=== PATIENT | female | born 1995 | race Caucasian/White ===

== ENCOUNTER 2018-06-12 13:21 | Outpatient (REF) | payer OTHER, SELFPAY ==
--- NOTE | 2018-06-12 12:00 | PAPFT_PTH ---
PATIENT: Promise Burrows LOC: [facility] U#:[id number] AGE/SX: 22/F ROOM: RE06/12/[address]: Magan Samson MD : 1995 BED: DIS: 06/12/2018 SPEC #: [id number] RECD: 06/15/18 12:58 STATUS: LISA REVandana #: [id number] KARIN: 06/12/18 12:[address]: Magan Samson DEPT: [facility] Cytology RECD BY: Melissa Ospina Tissues: 1 - CX/ENDOCX FOR PAP SMEARS Procedures: PAP THIN PREP/UVM Screening Comments: [id number]
== END 2018-06-12 13:41 ==
LOC: LBN 13:21
PROVIDERS: PCP Family Medicine; Visit Provider Family Medicine
DX: Z12.4 Encounter for screening for malignant neoplasm of cervix (principal)
CPT/HCPCS: 88142

== ENCOUNTER 2018-08-11 02:07 | Outpatient (CLI) | payer OTHER, SELFPAY ==
[2018-08-11 15:01] LABS: Cholesterol 139 mg/dL (50-200); Glucose 89 mg/dL (70-100); HDL Cholesterol 54 mg/dL (40-60); LDL CHOLESTEROL 80 mg/dL (<100); Potassium 3.8 mmol/L (3.5-5.1); Triglyceride 29 mg/dL (30-150)
== END 2018-08-11 02:27 ==
PROVIDERS: PCP Family Medicine; Visit Provider Family Medicine
DX: Z00.00 Encounter for general adult medical examination without abnormal findings (principal); E87.6 Hypokalemia; R25.1 Tremor, unspecified
CPT/HCPCS: 36415; 80061; 82947; 83721; 84132

== ENCOUNTER 2018-12-31 18:44 | Emergency (ER) | payer OTHER, SELFPAY ==
[2018-12-31] VITALS (9 sets, daily range): BP systolic 110–135; BP diastolic 50–70; PULSE 13–93; RESP 11–24; TEMP 37–37.4; O2SAT 98–100
--- NOTE | 2018-12-31 18:48 | ED.GENADUL_ITS ---
Discharge Plan Discharge Details Primary Care Provider: Magan Samson ED Provider: Linnea Mitchell Home Meds and New Rx's Prescriptions: No Action levetiracetam 1,000 mg tablet 1,000 mg PO Q12H Qty: 180 RF: 3 Elinest 0.3-30 mg-mcg tablet 1 tab PO DAILY Qty: 90 RF: 4 sertraline 50 mg tablet 50 mg PO DAILY Qty: 90 RF: 3 mometasone 50 mcg/actuation spray,non-aerosol 2 spray KESHAWN DAILY PRN (Reason: allergy symptoms) Qty: 17 RF: 4 lorazepam 0.5 mg tablet 0.5 mg PO BID PRN (Reason: anxiety) Qty: 20 RF: 0 cyanocobalamin (vitamin B-12) [Vitamin B-12] 1,000 MCG tablet 1,000 mcg PO DAILY RF: 0 folic acid 0.4 MG tablet 0.4 mg PO wkly RF: 0 Probiotic 1 EACH capsule 1 ea PO DAILY RF: 0 cholecalciferol (vitamin D3) 1,000 UNIT tablet 3,000 unit PO DAILY RF: 0 HPI General Date/Time Provider Initiated Documentation: 12/31/18 18:44 . Related Data Home Medications Medication Instructions Recorded Confirmed Lactobacillus acidophilus 1 ea PO DAILY 12/30/17 10/27/18 [Probiotic] cyanocobalamin (vitamin B-12) 1,000 mcg PO DAILY 12/30/17 10/27/18 [Vitamin B-12] folic acid 0.4 mg PO wkly tab-cap 12/30/17 10/27/18 cholecalciferol (vitamin D3) 3,000 unit PO DAILY 01/06/18 10/27/18 sertraline 50 mg tablet 50 mg PO DAILY #90 tab-cap 02/18/18 10/27/18 levetiracetam 1,000 mg tablet 1,000 mg PO Q12H #180 tab-cap 06/12/18 10/27/18 norgestrel-ethinyl estradiol 0.3 1 tab PO DAILY #90 tab-cap 06/12/18 10/27/18 mg-30 mcg tablet lorazepam 0.5 mg tablet 0.5 mg PO BID PRN #20 tab 10/27/18 10/27/18 mometasone 50 mcg/actuation nasal 2 spray KESHAWN DAILY PRN #17 gm 10/27/18 10/27/18 spray Previous Rx's Medication Instructions Recorded sertraline 50 mg tablet 50 mg PO DAILY #90 tab-cap 02/18/18 levetiracetam 1,000 mg tablet 1,000 mg PO Q12H #180 tab-cap 06/12/18 norgestrel-ethinyl estradiol 0.3 1 tab PO DAILY #90 tab-cap 06/12/18 mg-30 mcg tablet lorazepam 0.5 mg tablet 0.5 mg PO BID PRN #20 tab 10/27/18 mometasone 50 mcg/actuation nasal 2 spray KESHAWN DAILY PRN #17 gm 10/27/18 spray Allergies Allergy/AdvReac Type Severity Reaction Status Date / Time Penicillins Allergy Intermediate Hives Unverified 10/27/18 08:30 [facility] Social History (Updated 06/15/18 @ 08:59 by Jemima Marie) Smoking/Tobacco Use Status: Former Tobacco Use Second Hand Exposure: Yes Alcohol Intake: former Drug use: Never Substance use type: does not use Caregiver/Support person: No Foster care: No Household members: friend(s) Housing: apartment Number of Children: 1 current occupation: [employer], works with kennel manager dog track Pets and animals: No Sexually active: Yes Current gender identity: decline to answer Duration: decline to answer Frequency: 3-4 times per week Rosy/Sabianist: No preference Special rosy needs: No Seatbelt use: always Helmet use: Yes Drive intox or ride w/intox rolloff driver: No Working smoke detector in home: Yes Fire extinguisher in home: Yes Carbon monox detector in home: Yes Firearms in home: No Do you feel safe in your relationship?: Yes
[2018-12-31 19:07] LABS: Abs Immature Grans 0.01 k/cumm (0.0-0.09); Absolute Basophil Count 0.02 k/cumm (0.0-0.2); Absolute Eosinophil Count 0.09 k/cumm (0.0-0.7); Absolute Lymphocyte Count 1.85 k/cumm (1.2-3.4); Absolute Monocyte Count 0.38 k/cumm (0.11-0.7); Absolute Neutrophil Count 3.46 k/cumm (1.2-6.7); Basophils % 0.3; Eosinophils % 1.5; HCT 40.5 % (36.0-46.0); Immature Grans % 0.2; Lymphocytes % 31.8; Mean Corp. HGB Concentration 34.6 g/dL (32.0-36.0); Mean Corpuscular Hemoglobin 29.9 pg (27.0-33.0); Mean Corpuscular Volume 86.4 fL (80-95); Monocytes % 6.5; Neutrophils % 59.7; Platelet Count 208 x1000/uL (130-400); RBC 4.69 m/cumm (4.00-5.20); RBC Distribution Width 11.9 % (11.7-14.6); White Blood Cell Count 5.81 k/cumm (4.4-10.8)
[2018-12-31] MEDS: Normal Saline 1,000 ML 1000 ML IV (19:20)
[2018-12-31] MEDS: Normal Saline Flush 10 ML SYR IVP (19:20)
[2018-12-31] MEDS: Ondansetron 4 MG/2 ML VIAL (19:20)
[2018-12-31 19:23] LABS: Anion Gap 16.2 mmol/L (3-11); BUN 16 mg/dL (7-18); CO2 19.8 mmol/L (21.0-32.0); CREATININE 0.95 mg/dL (0.55-1.02); Calcium 8.8 mg/dL (8.5-10.1); Chloride 103 mmol/L (98-107); Glucose 92 mg/dL (70-100); Sodium 139 mmol/L (136-145)
--- NOTE | 2018-12-31 19:30 | ED.GENADUL_ITS ---
Discharge Plan Disposition Patient Disposition: HOME Condition: Good Discharge Details Chief Complaint: Seizure Clinical Impression: Seizure, Hypokalemia Primary Care Provider: Magan Samson ED Provider: Jason Villalba Home Meds and New Rx's Prescriptions: Continued Elinest 0.3-30 mg-mcg tablet 1 tab PO DAILY Qty: 90 RF: 4 sertraline 50 mg tablet 50 mg PO DAILY Qty: 90 RF: 3 mometasone 50 mcg/actuation spray,non-aerosol 2 spray KESHAWN DAILY PRN (Reason: allergy symptoms) Qty: 17 RF: 4 cyanocobalamin (vitamin B-12) [Vitamin B-12] 1,000 MCG tablet 1,000 mcg PO DAILY RF: 0 folic acid 0.4 MG tablet 0.4 mg PO wkly RF: 0 Probiotic 1 EACH capsule 1 ea PO DAILY RF: 0 cholecalciferol (vitamin D3) 1,000 UNIT tablet 3,000 unit PO DAILY RF: 0 levetiracetam 1,000 mg tablet 1,000 mg PO Q12H Qty: 60 RF: 0 Discharge Instructions Instructions: Hypokalemia (ED), Recurrent Seizures in Adults (ED) Additional Instructions: Please resume your Keppra as before. Seizure precautions (no driving, no swimming, no tubbing, no heights) until cleared by your neurologist or PCP when seizure-free for a period of time. Return to ED for recurrent prolonged seizure, neurologic changes, fever, other concerns or problems. Referrals: Magan Samson. [Primary Care Provider] - Medical Decision Making Patient here with seizure, with history of same, off Keppra for 1 week. Is now neurologically intact without complaint of. Has had one episode of emesis. Initial triage labs and fluids ordered. Zofran given for nausea. Gram of Keppra ordered for seizure control. While on this medication she had no seizures. 20:30 - Patient's CBC is normal. Chemistries significant for an anion gap and low bicarb as well as low potassium all likely related to her seizure that is estimated to have lasted about 5 minutes. Urinalysis is negative for infection. Urine test negative. She has been loaded with Keppra. Her potassium has been replaced. She remains neurologically intact without complaints of. I will give her 1000 mg of Keppra to take in the morning. She will then have a prescription to fill and begin taking twice a day as before. She will need to be on seizure precautions until seen and cleared by her neurologist/PCP. Return to ED if any further seizure or neurologic changes. Lab Data Lab results reviewed: Yes I reviewed the patient's lab results. ECG Data Attestation: I personally reviewed and interpreted this ECG (s) as follows: Prior ECG tracings: not available for review Interpretation: Normal sinus rhythm at 95. Normal intervals and axis. Right bundle branch block appearance to precordial septal leads. HPI General Mode of arrival: EMS . Date/Time Provider Initiated Documentation: 12/31/18 18:44 . Limitations to Documentation: no limitations . Information obtained by: patient, family and RN notes reviewed . HPI Narrative: Patient presents to ED by ambulance after suffering seizure. She has a history of seizures. They are not full-blown tonic-clonic but they do involve loss of awareness, clenching of jaw, postictal state. She had previously been on Keppra. While on Keppra for the last year and a half she had no seizures. She recently lost her insurance and has been out of [employer] for the last week. She had her seizure tonight. Prior to that she had been well. No report of fevers, URI symptoms, UTI symptoms. Currently awake and alert here. She developed some tingling and had a possible aura suggesting another seizure coming after arrival. She did not seize. She did have an episode of emesis. She is now feeling much better. Related Data Home Medications Medication Instructions Recorded Confirmed Probiotic 1 ea PO DAILY 12/30/17 12/31/18 cyanocobalamin (vitamin B-12) 1,000 mcg PO DAILY 12/30/17 12/31/18 [Vitamin B-12] folic acid 0.4 mg PO wkly tab-cap 12/30/17 12/31/18 cholecalciferol (vitamin D3) 3,000 unit PO DAILY 01/06/18 12/31/18 sertraline 50 mg tablet 50 mg PO DAILY #90 tab-cap 02/18/18 12/31/18 norgestrel-ethinyl estradiol 0.3 1 tab PO DAILY #90 tab-cap 06/12/18 12/31/18 mg-30 mcg tablet mometasone 50 mcg/actuation nasal 2 spray KESHAWN DAILY PRN #17 gm 10/27/18 12/31/18 spray levetiracetam 1,000 mg PO Q12H #60 tab-cap 12/31/18 Previous Rx's Medication Instructions Recorded sertraline 50 mg tablet 50 mg PO DAILY #90 tab-cap 02/18/18 norgestrel-ethinyl estradiol 0.3 1 tab PO DAILY #90 tab-cap 06/12/18 mg-30 mcg tablet mometasone 50 mcg/actuation nasal 2 spray KESHAWN DAILY PRN #17 gm 10/27/18 spray levetiracetam 1,000 mg PO Q12H #60 tab-cap 12/31/18 Allergies Allergy/AdvReac Type Severity Reaction Status Date / Time Penicillins Allergy Intermediate Hives Unverified 12/31/18 19:27 General Stated Complaint: Seizure JOHANN: 3 Review of Systems Review of Systems 02/22 Review of Systems completed and is negative except as stated above in HPI (Systems reviewed: Const, Eyes, ENT, Resp, CV, GI, , MSK, Skin, Neuro) [facility] Medical History Anxiety (Chronic) Depression (Chronic) Immune thrombocytopenic purpura (Resolved 03/02/02) Post-traumatic stress disorder (Chronic) Recurrent seizures (Acute 06/10/17) Social History Smoking/Tobacco Use Status: Former Tobacco Use Second Hand Exposure: Yes Alcohol Intake: former Drug use: Never Substance use type: does not use Caregiver/Support person: No Foster care: No Household members: friend(s) Housing: apartment Number of Children: 1 current occupation: [employer], works with hot dog vendor Pets and animals: No Sexually active: Yes Current gender identity: decline to answer Duration: decline to answer Frequency: 3-4 times per week Rosy/Gnosticist: No preference Special rosy needs: No Seatbelt use: always Helmet use: Yes Drive intox or ride w/intox public transit trolley driver: No Working smoke detector in home: Yes Fire extinguisher in home: Yes Carbon monox detector in home: Yes Firearms in home: No Do you feel safe in your relationship?: Yes Exam Narrative Exam Narrative: Vitals: Afebrile with normal vitals. Const: WDWN female in NAD. HEENT: NC/AT. Normal facial exam except for some scratches on her cheek/chin area. No dental injury or tongue laceration. Eyes: PERRL and EOMI. Neck: Supple. Trachea midline. Normal ROM without pain. Lungs: Normal respiratory effort. Lungs are clear. Cor: RRR without murmur/gallop. Good radial pulses. Neuro: A+O x 3. CN II - XII in tact. Normal strength, sensation, speech and mental status. Ext: No C/C/E. No deformity or tenderness. Skin: Warm and dry with scratches on face as described. Course Vital Signs Temperature 99.3 F 12/31/18 18:45 Pulse 87 12/31/18 18:45 Respiratory Rate 20 12/31/18 18:45 Blood Pressure 125/58 L 12/31/18 18:45 Pulse Oximetry 100 12/31/18 18:45 Temperature 99.3 F 12/31/18 18:45 Temperature Source Skin 12/31/18 18:45 Pulse 87 12/31/18 18:45 Respiratory Rate 20 12/31/18 18:45 Blood Pressure 125/58 L 12/31/18 18:45 Blood Pressure Position Supine 12/31/18 18:45 Pulse Oximetry 100 12/31/18 18:45 Oxygen Delivery Method Room Air 12/31/18 18:45 Oxygen Flow Rate 0 12/31/18 18:45 Pain Level 0 12/31/18 18:45 Lab/Test Results Lab/Test Results: Laboratory Tests Range/Units 12/31/18 19:00 WBC (4.4-10.8) k/cumm 5.81 RBC (4.00-5.20) m/cumm 4.69 Hgb (12.0-15.5) g/dL 14.0 Hct (36.0-46.0) % 40.5 MCV (80-95) fL 86.4 MCH (27.0-33.0) pg 29.9 MCHC (32.0-36.0) g/dL 34.6 RDW (11.7-14.6) % 11.9 Plt Count (130-400) x1000/uL 208 MPV (8.0-11.0) fL 10.0 Immature Gran % 0.2 Neutrophils % 59.7 Lymphocytes % 31.8 Monocytes % 6.5 Eosinophils % 1.5 Basophils % 0.3 Absolute Neutrophils (1.2-6.7) k/cumm 3.46 Absolute Lymphocytes (1.2-3.4) k/cumm 1.85 Absolute Monocytes (0.11-0.7) k/cumm 0.38 Absolute Eosinophils (0.0-0.7) k/cumm 0.09 Absolute Basophils (0.0-0.2) k/cumm 0.02
[2018-12-31 19:33] LABS: Potassium 2.9 mmol/L (3.5-5.1)
[2018-12-31] MEDS: levETIRAcetam 1,000 MG in Normal Saline 100 ML 400 MG IVPB (19:39)
[2018-12-31 20:10] LABS: Bilirubin Negative (Negative); Blood Negative (Negative); Clarity Clear (Clear); Glucose Negative (Negative); Ketones 15 mg/dL (Negative); Leukocyte Esterase Negative (Negative); Nitrite Negative (Negative); Specific Gravity 1.025 (1.005-1.025); Urobilinogen 0.2 EU/dL (Up TO 0.2)
[2018-12-31] MEDS: POTASSIUM CHLORIDE 20 MEQ, POTASSIUM CHLORIDE 10 MEQ 30 MEQ PO (20:33)
[2018-12-31] MEDS: POTASSIUM CHLORIDE 10 MEQ/100 ML BAG 100 MEQ IVPB (20:34)
[2018-12-31] MEDS: levETIRAcetam 250 MG TAB 1000 MG PO (21:24)
[2019-01-02 16:24] LABS: Levetiracetam <2.0 mcg/mL
== END 2018-12-31 21:46 | disposition home or self-care (01) ==
PROVIDERS: Physician Assistant; Emergency Provider Emergency Medicine; PCP Family Medicine
DX: G40.909 Epilepsy, unspecified, not intractable, without status epilepticus (principal); E87.6 Hypokalemia; R11.2 Nausea with vomiting, unspecified; Z91.120 Patient's intentional underdosing of medication regimen due to financial hardship
CPT/HCPCS: 36415; 80048; 81025; 93005; 96361; 96365; 96367; 96375; 99284; 80177; 81003; 85025; 93010; 99285; J1953; J2405; J3480

== ENCOUNTER 2020-10-25 08:26 | Outpatient (CLI) | payer OTHER, SELFPAY ==
[2020-10-26 16:30] LABS: Levetiracetam 22.2 mcg/mL
== END 2020-10-25 08:27 | disposition home or self-care (01) ==
PROVIDERS: PCP Family Medicine; Visit Provider Family Medicine
DX: G40.909 Epilepsy, unspecified, not intractable, without status epilepticus (principal); Z51.81 Encounter for therapeutic drug level monitoring
CPT/HCPCS: 36415; 80177

== ENCOUNTER 2022-08-06 15:57 | Outpatient (REF) | payer OTHER, SELFPAY ==
--- NOTE | 2022-08-06 13:40 | PAPFT_PTH ---
PATIENT: Promise Burrows LOC: [facility] U#:[id number] AGE/SX: 26/F ROOM: RE08/06/[address]: Juliet Hyatt NP : 1995 BED: DIS: 08/06/2022 SPEC #: [id number] RECD: 08/06/22 17:53 STATUS: LISA REQ #: [id number] KARIN: 08/06/22 13:[address]: Juliet Hyatt NP DEPT: [facility] Cytology RECD BY: Melissa Ospina ENTERED: 08/06/22 17:54 SP TYPE: PAPFT OTHR DR: Magan Samson MD Tissues: 1 - CX/ENDOCX FOR PAP SMEARS Procedures: PAP THIN PREP/UVM Screening Comments: [id number] (CHLAMYDIA/GC)
[2022-08-07 16:01] LABS: Chlamydia Result Negative (Negative); GC Result Negative (Negative)
== END 2022-08-06 15:58 | disposition home or self-care (01) ==
LOC: LBN 15:57
PROVIDERS: PCP Family Medicine; Visit Provider Nurse Practitioner Women's Health
DX: Z11.3 Encounter for screening for infections with a predominantly sexual mode of transmission (principal); Z12.4 Encounter for screening for malignant neoplasm of cervix
CPT/HCPCS: 87491; 87591; 88142

== ENCOUNTER 2022-09-17 02:43 | Outpatient (CLI) | payer OTHER, SELFPAY ==
[2022-09-17 13:15] LABS: Potassium 3.4 mmol/L (3.5-5.1)
[2022-09-18 10:18] LABS: Hepatitis C Ab w Rflx HCV PCR Negative (Negative)
[2022-09-18 10:32] LABS: HIV-1/2 Ag & Ab Screen Negative (Negative)
[2022-09-19 20:10] LABS: Syphilis IgG w/Reflex Nonreactive (Nonreactive)
== END 2022-09-17 02:44 | disposition home or self-care (01) ==
PROVIDERS: Nurse Practitioner Women's Health; PCP Family Medicine; Visit Provider Family Medicine
DX: Z00.00 Encounter for general adult medical examination without abnormal findings (principal); I10 Essential (primary) hypertension; Z11.3 Encounter for screening for infections with a predominantly sexual mode of transmission; Z11.59 Encounter for screening for other viral diseases; Z11.4 Encounter for screening for human immunodeficiency virus [HIV]
CPT/HCPCS: 36415; 86803; 87389; 84132; 86780

== ENCOUNTER 2023-07-16 05:04 | Outpatient (CLI) | payer SELFPAY ==
[2023-07-16 12:25] LABS: HCT 40.4 % (36.0-46.0); HGB 13.9 g/dL (11.2-15.7); MCH 30.6 pg (27.0-33.0); MCHC 34.4 % (32.0-36.0); MCV 89 fL (80-95); MPV 10.2 fL (8.0-11.0); Platelet Count 229 10^3/uL (130-400); RBC 4.54 10^6/uL (3.93-5.22); RDW 11.7 % (11.7-14.6); RDW-SD 37.8 fL; WBC 4.81 10^3/uL (4.4-10.8)
[2023-07-16 13:26] LABS: Anion Gap 10.7 mmol/L (3-11); BUN 11 mg/dL (7-18); CO2 25.3 mmol/L (21.0-32.0); CREATININE 0.8 mg/dL (0.55-1.02); Calcium 8.3 mg/dL (8.5-10.1); Chloride 107 mmol/L (98-107); Glucose 97 mg/dL (74-106); Sodium 143 mmol/L (136-145)
== END 2023-07-16 05:05 | disposition home or self-care (01) ==
LOC: LOS 05:05
PROVIDERS: PCP Family Medicine; Visit Provider Nurse Practitioner Family
DX: G40.909 Epilepsy, unspecified, not intractable, without status epilepticus (principal); F32.9 Major depressive disorder, single episode, unspecified; F98.8 Other specified behavioral and emotional disorders with onset usually occurring in childhood and adolescence
CPT/HCPCS: 36415; 80048; 85027

== ENCOUNTER 2023-10-03 14:37 | Outpatient (REF) | payer OTHER, SELFPAY ==
[2023-10-03 23:26] LABS: HIV-1/2 Ag & Ab Screen Negative (Negative)
[2023-10-04 12:20] LABS: Chlamydia Result Negative (Negative); GC Result Negative (Negative)
[2023-10-06 10:36] LABS: Hepatitis A Antibody IgM Negative (Negative); Hepatitis B Core Antibody Negative (Negative); Hepatitis B surface Ag Negative (Negative); Hepatitis C Ab w Rflx HCV PCR Negative (Negative)
[2023-10-06 12:36] LABS: Syphilis Serology (RPR) Negative (Negative)
== END 2023-10-03 14:38 | disposition home or self-care (01) ==
LOC: LBN 14:37
PROVIDERS: PCP Family Medicine; Visit Provider Obstetrics & Gynecology
DX: Z11.3 Encounter for screening for infections with a predominantly sexual mode of transmission (principal)
CPT/HCPCS: 36415; 86704; 86709; 86803; 87340; 87389; 87491; 87591; 86592; 87480; 87510; 87660